=== PATIENT | female | born 1940 | race Hispanic/Latino ===

== ENCOUNTER 2017-05-26 15:33 | Inpatient (IN) | payer MEDICARE ==
[~2017-05-26] VITALS: Ht 154.9 cm; Wt 59.1 kg
[~2017-05-26 15:33] MED LIST: BRIM5DRO OU; BUDE10.2 IH; DILT120C57 PO; ERGO500014 PO; SITA100T12 PO
[2017-05-26 16:05] LABS: BASOPHILS % (AUTO) 0.7 % (0.0-5.0); EOSINOPHILS % (AUTO) 0.6 % (0.0-8.0); HEMATOCRIT 37.2 % (36-48); LYMPHOCYTES % (AUTO) 12.6 % (21.0-51.0); MEAN CORPUSCULAR HEMOGLOBIN 31.7 pg (27.0-33.0); MEAN CORPUSCULAR HGB CONC 34.6 g/dL (32.0-36.0); MEAN CORPUSCULAR VOLUME 91.6 fL (79-99); MONOCYTES % (AUTO) 6.9 % (3.0-13.0); NEUTROPHILS % (AUTO) 79.2 % (40.0-77.0); PLATELET COUNT (AUTO) 390 K/uL (130-400); RED BLOOD CELL COUNT(AUTO) 4.05 MIL/uL (4.00-5.50); RED CELL DISTRIBUTION WIDTH 12.8 % (11.0-15.5)
[2017-05-26 16:14] LABS: POTASSIUM 3.9 mmol/L (3.5-5.1)
[2017-05-26 16:19] LABS: ALBUMIN 2.9 g/dL (3.5-5.0); BILIRUBIN,TOTAL 0.4 mg/dL (0.2-1.0); TOTAL PROTEIN, SERUM 7.5 g/dL (6.0-8.3)
[2017-05-26 16:38] LABS: APPEARANCE,URINE Clear (CLEAR); BILIRUBIN,URINE Negative (NEGATIVE); COLOR,URINE Yellow (YELLOW); GLUCOSE, URINE (UA) 500 mg/dL (NEGATIVE); KETONES,URINE Negative (NEGATIVE); LEUKOCYTE ESTERASE ,URINE Negative (NEGATIVE); NITRATE,URINE Negative (NEGATIVE); OCCULT BLOOD,URINE Negative (NEGATIVE); PROTEIN,URINE Negative (NEGATIVE); UROBILINOGEN,URINE 0.2 mg/dL (0.2-1.0)
[2017-05-26 16:55] LABS: BACTERIA,URINE Rare /HPF (None Seen); RBC,URINE None Seen /HPF (0-1); WBC,URINE None Seen /HPF (0-1)
[2017-05-26] MEDS ORDERED: BENZONATATE 100 MG CAPSULE PO ONE (17:11)
[2017-05-26] MEDS ORDERED: SODIUM CHLORIDE 0.9% 1000ML 1,000 ML IV ONE (17:11)
[2017-05-26] MEDS ORDERED: IPRATROPIUM/ALBUTEROL SULFATE 3 ML SOLUTION IH ONE (17:24)
[2017-05-26] MEDS ORDERED: IOPAMIDOL-370 75 ML VIAL IV ONE (18:27)
[2017-05-26] MEDS ORDERED: METHYLPREDNISOLONE SOD SUCC 40MG/ML 1ML ONE (19:55)
[2017-05-26] MEDS ORDERED: CEFTRIAXONE SODIUM 1 GM ONE (20:01)
[2017-05-26] MEDS ORDERED: AZITHROMYCIN 250 MG TABLET PO ONE (20:02)
[2017-05-26] MEDS ORDERED: OSELTAMIVIR PHOSPHATE 75 MG CAP ONE (20:03)
[2017-05-26] MEDS ORDERED: ALBUTEROL SULFATE 0.083% 2.5 MG/3 ML INH IH ONE (20:04)
[2017-05-26] MEDS ORDERED: INSULIN HUMULIN R 100 UNIT/ML 3ML ONE (20:23)
[2017-05-26] MEDS: OSELTAMIVIR PHOSPHATE 75 MG CAP PO SCH (21:00)
[2017-05-26 21:45] VITALS: BP 161/62
[2017-05-26] MEDS: IPRATROPIUM/ALBUTEROL SULFATE 3 ML SOLUTION IH SCH (22:19)
[2017-05-26] MEDS: SODIUM CHLORIDE 0.9% 1000ML 1,000 ML IV SCH (22:35)
[2017-05-26] MEDS: INSULIN R PO SS1 SQ SCH (22:36)
[2017-05-26] MEDS: ACETAMINOPHEN 325 MG TAB PO PRN (22:37)
[2017-05-27] VITALS (7 sets, daily range): BP systolic 124–144; BP diastolic 59–73
[2017-05-27] MEDS: IPRATROPIUM/ALBUTEROL SULFATE 3 ML SOLUTION IH SCH ×6 (02:23→22:20)
[2017-05-27 03:56] LABS: HEMATOCRIT 35.1 % (36-48); MEAN CORPUSCULAR HGB CONC 34.1 g/dL (32.0-36.0); MEAN CORPUSCULAR VOLUME 93.9 fL (79-99); PLATELET COUNT (AUTO) 323 K/uL (130-400); RED BLOOD CELL COUNT(AUTO) 3.74 MIL/uL (4.00-5.50); RED CELL DISTRIBUTION WIDTH 12.8 % (11.0-15.5); WHITE BLOOD COUNT (AUTO) 10.2 K/uL (4.8-10.8)
[2017-05-27 04:14] LABS: CREATININE 1.2 mg/dL (0.5-1.5); MAGNESIUM 1.3 mg/dL (1.80-2.40); POTASSIUM 3.8 mmol/L (3.5-5.1)
[2017-05-27 04:37] LABS: BAND NEUTROPHILS % (MANUAL) 2 % (0-2); LYMPHOCYTES % (MANUAL) 2 % (22-44); MAN.DIFF COMMENT-IMPRESSION MANUAL DIFFERENTIAL; PLATELET MORPHOLOGY COMMENT ADEQUATE; SEGMENTED NEUTROPHILS % 96 % (40-70)
[2017-05-27] MEDS ORDERED: MAGNESIUM 4GM PREMIX 100ML 100 ML IV ONE (05:15)
[2017-05-27] MEDS: INSULIN R PO SS1 SQ SCH ×2 (05:49→11:30)
[2017-05-27] MEDS: INSULIN HUMULIN R 100 UNIT/ML 3ML SQ SCH ×4 (05:49→21:11)
[2017-05-27] MEDS: INSULIN GLARGINE 100 UNITS/ML 10 ML VIAL SQ SCH ×2 (05:50→21:12)
[2017-05-27] MEDS ORDERED: MAGNESIUM 2GM PREMIX 50ML 100 ML IV ONE (06:04)
[2017-05-27 09:17] LABS: MEAN CORPUSCULAR HEMOGLOBIN 30.9 pg (27.0-33.0); MEAN CORPUSCULAR HGB CONC 33.6 g/dL (32.0-36.0); MEAN CORPUSCULAR VOLUME 92.2 fL (79-99); PLATELET COUNT (AUTO) 346 K/uL (130-400); RED BLOOD CELL COUNT(AUTO) 3.91 MIL/uL (4.00-5.50); RED CELL DISTRIBUTION WIDTH 12.6 % (11.0-15.5); WHITE BLOOD COUNT (AUTO) 12.2 K/uL (4.8-10.8)
[2017-05-27] MEDS: OSELTAMIVIR PHOSPHATE 75 MG CAP PO SCH (09:18)
[2017-05-27 09:32] LABS: BAND NEUTROPHILS % (MANUAL) 1 % (0-2); LYMPHOCYTES % (MANUAL) 4 % (22-44); MAN.DIFF COMMENT-IMPRESSION MANUAL DIFFERENTIAL; MONOCYTES % (MANUAL) 1 % (2-9); PLATELET MORPHOLOGY COMMENT ADEQUATE; SEGMENTED NEUTROPHILS % 94 % (40-70)
[2017-05-27] MEDS ORDERED: COMPOUND PO MISCELLANEOUS 1 EACH MISC MISC PRN (13:45)
[2017-05-27] MEDS ORDERED: TAMO20TA4 PO (14:24)
[2017-05-27] MEDS: SODIUM CHLORIDE 0.9% 1000ML 1,000 ML IV SCH (14:30)
[2017-05-27] MEDS ORDERED: MAGNESIUM 2GM PREMIX 50ML 50 ML IV PRN (15:30)
[2017-05-27] MEDS ORDERED: CEFTRIAXONE SODIUM 1 GM IVP SCH (19:00)
[2017-05-27] MEDS ORDERED: INSULIN GLARGINE 100 UNITS/ML 10 ML VIAL SQ ONE (20:41)
[2017-05-27] MEDS: AZITHROMYCIN 500MG+NS 250ML 250 ML IV SCH (21:08)
[2017-05-27] MEDS: CEFTRIAXONE SODIUM 1 GM IVP SCH (21:08)
[2017-05-27] MEDS: OSELTAMIVIR SUSP 15 MG/ML (6 CAPS/29ML) PO SCH ×2 (21:09)
[2017-05-27] MEDS: ZOLPIDEM TARTRATE 5 MG TAB PO SCH (21:09)
[2017-05-28] MEDS: IPRATROPIUM/ALBUTEROL SULFATE 3 ML SOLUTION IH SCH ×6 (01:56→22:08)
[2017-05-28 03:17] VITALS: BP 145/72
[2017-05-28 04:43] LABS: CREATININE 0.7 mg/dL (0.5-1.5); MAGNESIUM 2.3 mg/dL (1.80-2.40)
[2017-05-28] MEDS ORDERED: INSULIN GLARGINE 100 UNITS/ML 10 ML VIAL SQ ONE ×2 (05:04→20:20)
[2017-05-28] MEDS: INSULIN GLARGINE 100 UNITS/ML 10 ML VIAL SQ SCH ×2 (06:33→22:17)
[2017-05-28] MEDS: INSULIN HUMULIN R 100 UNIT/ML 3ML SQ SCH ×4 (06:33→22:16)
[2017-05-28 06:50] LABS: BASOPHILS % (AUTO) 0.3 % (0.0-5.0); EOSINOPHILS % (AUTO) 0.1 % (0.0-8.0); MEAN CORPUSCULAR HEMOGLOBIN 32.3 pg (27.0-33.0); MEAN CORPUSCULAR HGB CONC 34.3 g/dL (32.0-36.0); MONOCYTES % (AUTO) 5.5 % (3.0-13.0); NEUTROPHILS % (AUTO) 82.1 % (40.0-77.0); PLATELET COUNT (AUTO) 348 K/uL (130-400); RED CELL DISTRIBUTION WIDTH 12.9 % (11.0-15.5)
[2017-05-28 07:00] VITALS: BP 159/67
[2017-05-28] MEDS: LINAGLIPTIN 5 MG TABLET PO SCH (08:23)
[2017-05-28] MEDS: OSELTAMIVIR SUSP 15 MG/ML (6 CAPS/29ML) PO SCH ×4 (08:23→21:36)
[2017-05-28] MEDS: SODIUM CHLORIDE 0.9% 1000ML 1,000 ML IV SCH (08:24)
[2017-05-28] MEDS: ERGOCALCIFEROL (VITAMIN D2) 50,000 UNIT CAPSULE PO SCH ×2 (08:27→14:03)
[2017-05-28] MEDS: TAMOXIFEN CITRATE 10 MG TABLET PO SCH (08:28)
[2017-05-28] MEDS: DILTIAZEM HCL 120 MG CAP.SR.24H PO SCH (08:28)
[2017-05-28] MEDS: BRIMONIDINE TARTRATE 0.2% 5 ML BOTTLE OU SCH (10:51)
[2017-05-28] MEDS: TIMOLOL MALEATE 0.5% 5 ML BOTTLE OU SCH (10:51)
[2017-05-28 11:00] VITALS: BP 125/64
[2017-05-28] MEDS: ACETAMINOPHEN 325 MG TAB PO PRN (15:25)
[2017-05-28 16:00] VITALS: BP 133/85
[2017-05-28] MEDS: ALBUTEROL SULFATE 0.083% 2.5 MG/3 ML INH IH SCH (18:00)
[2017-05-28 19:02] VITALS: BP 141/72
[2017-05-28] MEDS: AZITHROMYCIN 500MG+NS 250ML 250 ML IV SCH (21:35)
[2017-05-28] MEDS: ZOLPIDEM TARTRATE 5 MG TAB PO SCH (21:35)
[2017-05-28] MEDS: CEFTRIAXONE SODIUM 1 GM IVP SCH (21:35)
[2017-05-28] MEDS: BUDESONIDE 0.5 MG/2 ML INH IH SCH (22:22)
[2017-05-28 23:09] VITALS: BP 167/85
[2017-05-29] MEDS: IPRATROPIUM/ALBUTEROL SULFATE 3 ML SOLUTION IH SCH ×6 (01:54→22:33)
[2017-05-29 03:03] VITALS: BP 165/81
[2017-05-29 03:45] LABS: MAGNESIUM 1.5 mg/dL (1.80-2.40)
[2017-05-29 03:55] LABS: HEMATOCRIT 34.5 % (36-48); MEAN CORPUSCULAR HGB CONC 34.9 g/dL (32.0-36.0); MEAN CORPUSCULAR VOLUME 94.6 fL (79-99); NUCLEATED RED BLOOD CELLS 0.1 % (0.0-0.19); PLATELET COUNT (AUTO) 364 K/uL (130-400); RED BLOOD CELL COUNT(AUTO) 3.64 MIL/uL (4.00-5.50); RED CELL DISTRIBUTION WIDTH 12.8 % (11.0-15.5)
[2017-05-29] MEDS ORDERED: OSEL75 PO (05:18)
[2017-05-29] MEDS ORDERED: LEVO500T89 PO (05:18)
[2017-05-29 05:31] LABS: BAND NEUTROPHILS % (MANUAL) 5 % (0-2); LYMPHOCYTES % (MANUAL) 19 % (22-44); MAN.DIFF COMMENT-IMPRESSION MANUAL DIFFERENTIAL; MONOCYTES % (MANUAL) 14 % (2-9); PLATELET MORPHOLOGY COMMENT ADEQUATE; REACTIVE LYMPHOCYTES 5 % (0-0); SEGMENTED NEUTROPHILS % 57 % (40-70)
[2017-05-29] MEDS: ALBUTEROL SULFATE 0.083% 2.5 MG/3 ML INH IH SCH ×4 (06:00→18:00)
[2017-05-29] MEDS: INSULIN HUMULIN R 100 UNIT/ML 3ML SQ SCH ×3 (06:35→20:55)
[2017-05-29] MEDS: INSULIN GLARGINE 100 UNITS/ML 10 ML VIAL SQ SCH ×2 (06:36→20:58)
[2017-05-29] MEDS: BUDESONIDE 0.5 MG/2 ML INH IH SCH ×2 (06:41→18:00)
[2017-05-29 08:20] VITALS: BP 148/80
[2017-05-29] MEDS ORDERED: MAGNESIUM 4GM PREMIX 100ML 100 ML IV SCH (09:00)
[2017-05-29] MEDS: TAMOXIFEN CITRATE 10 MG TABLET PO SCH (09:36)
[2017-05-29] MEDS: DILTIAZEM HCL 120 MG CAP.SR.24H PO SCH (09:36)
[2017-05-29] MEDS: LINAGLIPTIN 5 MG TABLET PO SCH (09:36)
[2017-05-29] MEDS: BRIMONIDINE TARTRATE 0.2% 5 ML BOTTLE OU SCH (09:37)
[2017-05-29] MEDS: OSELTAMIVIR SUSP 15 MG/ML (6 CAPS/29ML) PO SCH ×4 (09:37→20:52)
[2017-05-29] MEDS: TIMOLOL MALEATE 0.5% 5 ML BOTTLE OU SCH (09:37)
[2017-05-29] MEDS: ACETAMINOPHEN 325 MG TAB PO PRN (09:54)
[2017-05-29 11:00] VITALS: BP 162/76
[2017-05-29] MEDS: SODIUM CHLORIDE 0.9% 1000ML 1,000 ML IV SCH (14:55)
[2017-05-29 16:00] VITALS: BP 129/56
[2017-05-29 19:00] VITALS: BP 175/80
[2017-05-29] MEDS: ZOLPIDEM TARTRATE 5 MG TAB PO SCH (20:49)
[2017-05-29] MEDS: DOXYCYCLINE HYCLATE 100 MG TABLET PO SCH (20:52)
[2017-05-29 23:00] VITALS: BP 146/94
[2017-05-30] MEDS: ALBUTEROL SULFATE 0.083% 2.5 MG/3 ML INH IH SCH
[2017-05-30] MEDS: IPRATROPIUM/ALBUTEROL SULFATE 3 ML SOLUTION IH SCH ×3 (01:24→09:47)
[2017-05-30 03:00] VITALS: BP 141/63
[2017-05-30] MEDS: SODIUM CHLORIDE 0.9% 1000ML 1,000 ML IV SCH (03:17)
[2017-05-30] MEDS: ACETAMINOPHEN 325 MG TAB PO PRN (03:24)
[2017-05-30] MEDS: INSULIN HUMULIN R 100 UNIT/ML 3ML SQ SCH (05:44)
[2017-05-30] MEDS: INSULIN GLARGINE 100 UNITS/ML 10 ML VIAL SQ SCH (06:14)
[2017-05-30 07:39] VITALS: BP 141/58
[2017-05-30] MEDS: TAMOXIFEN CITRATE 10 MG TABLET PO SCH (09:09)
[2017-05-30] MEDS: OSELTAMIVIR SUSP 15 MG/ML (6 CAPS/29ML) PO SCH ×2 (09:09)
[2017-05-30] MEDS: DILTIAZEM HCL 120 MG CAP.SR.24H PO SCH (09:09)
[2017-05-30] MEDS: LINAGLIPTIN 5 MG TABLET PO SCH (09:09)
[2017-05-30] MEDS: DOXYCYCLINE HYCLATE 100 MG TABLET PO SCH (09:09)
[2017-05-30 09:10] LABS: BASOPHILS % (AUTO) 0.8 % (0.0-5.0); HEMATOCRIT 36.8 % (36-48); MEAN CORPUSCULAR HEMOGLOBIN 31.5 pg (27.0-33.0); MEAN CORPUSCULAR VOLUME 92.7 fL (79-99); MONOCYTES % (AUTO) 7.2 % (3.0-13.0); NUCLEATED RED BLOOD CELLS 0.1 % (0.0-0.19); PLATELET COUNT (AUTO) 390 K/uL (130-400); RED BLOOD CELL COUNT(AUTO) 3.97 MIL/uL (4.00-5.50); RED CELL DISTRIBUTION WIDTH 12.9 % (11.0-15.5); WHITE BLOOD COUNT (AUTO) 8.4 K/uL (4.8-10.8)
[2017-05-30 11:30] VITALS: BP 146/72
== END 2017-05-30 13:22 | disposition home or self-care (01) | DRG 190 ==
LOC: EDH 15:33 → EDHIP 20:00 → 2DH 20:44
PROVIDERS: ADMIT Family Medicine; ATTEND Family Medicine
DX: J44.0 Chronic obstructive pulmonary disease with (acute) lower respiratory infection (principal); J10.01 Influenza due to other identified influenza virus with the same other identified influenza virus pneumonia; R06.03 Acute respiratory distress; E11.65 Type 2 diabetes mellitus with hyperglycemia; E87.1 Hypo-osmolality and hyponatremia; J44.1 Chronic obstructive pulmonary disease with (acute) exacerbation; E83.42 Hypomagnesemia; E78.5 Hyperlipidemia, unspecified; E87.6 Hypokalemia; I25.10 Atherosclerotic heart disease of native coronary artery without angina pectoris; M81.0 Age-related osteoporosis without current pathological fracture; I10 Essential (primary) hypertension; Z83.3 Family history of diabetes mellitus; Z82.49 Family history of ischemic heart disease and other diseases of the circulatory system; Z87.891 Personal history of nicotine dependence; Z28.21 Immunization not carried out because of patient refusal; Z98.51 Tubal ligation status; Z95.1 Presence of aortocoronary bypass graft; Z85.3 Personal history of malignant neoplasm of breast; Z92.21 Personal history of antineoplastic chemotherapy
CPT/HCPCS: 36415; 71046; 71260; 73562; 80048; 80053; 81001; 82948; 83735; 84484; 85007; 85025; 85027; 87040; 87088; 87186; 87804; 93005; 94640; 94664; A4218; J0456; J0696; J1815; J2920; J3475; J7030; Q9967

== ENCOUNTER 2017-07-14 12:54 | Inpatient (IN) | payer MEDICARE ==
[~2017-07-14 12:54] MED LIST changes: +LEVO500T89 PO; +OSEL75 PO; +TAMO20TA4 PO
[2017-07-14 14:01] LABS: BASOPHILS % (AUTO) 0.6 % (0.0-5.0); EOSINOPHILS % (AUTO) 0.1 % (0.0-8.0); HEMATOCRIT 36.4 % (36-48); LYMPHOCYTES % (AUTO) 11.5 % (21.0-51.0); MEAN CORPUSCULAR HEMOGLOBIN 32.2 pg (27.0-33.0); MEAN CORPUSCULAR HGB CONC 35.2 g/dL (32.0-36.0); MEAN CORPUSCULAR VOLUME 91.5 fL (79-99); MONOCYTES % (AUTO) 7.1 % (3.0-13.0); NEUTROPHILS % (AUTO) 80.7 % (40.0-77.0); PLATELET COUNT (AUTO) 279 K/uL (130-400); RED BLOOD CELL COUNT(AUTO) 3.98 MIL/uL (4.00-5.50); RED CELL DISTRIBUTION WIDTH 13.7 % (11.0-15.5); WHITE BLOOD COUNT (AUTO) 11.2 K/uL (4.8-10.8)
[2017-07-14 14:36] LABS: CARBON DIOXIDE 25 mmol/L (21-32); CHLORIDE 97 mmol/L (101-111); CREATININE 0.8 mg/dL (0.5-1.5); GLOMERULAR FILTR. RATE CALC 74 mL/min (>60); GLUCOSE,RANDOM 302 mg/dL (70-105); POTASSIUM 3.8 mmol/L (3.5-5.1); SODIUM SERUM 132 mmol/L (136-145); UREA NITROGEN, BLOOD 9 mg/dL (7-18)
[2017-07-14 14:37] LABS: INR 0.9 (0.85-1.15); PARTIAL THROMBOPLASTIN TIME 31.3 SEC (26.3-35.5); PROTHROMBIN TIME 9.5 SEC (9.6-11.6)
[2017-07-14 14:49] LABS: ALANINE AMINOTRANSFERASE 40 U/L (12-78); ALBUMIN 2.9 g/dL (3.5-5.0); ASPARTATE AMINOTRANSFERASE 53 U/L (10-37); BILIRUBIN,TOTAL 0.7 mg/dL (0.2-1.0); CREATINE KINASE MB < 0.5 ng/mL (0.5-3.6); CREATINE KINASE, TOTAL 47 U/L (21-232); TOTAL PROTEIN, SERUM 7.5 g/dL (6.0-8.3)
[2017-07-14] MEDS ORDERED: IPRATROPIUM/ALBUTEROL SULFATE 3 ML SOLUTION IH ONE (15:16)
[2017-07-14] MEDS ORDERED: ISOVUE-370 50ML VIAL IV ONE (16:57)
[2017-07-14] MEDS ORDERED: CEFTRIAXONE SODIUM 1 GM ONE (18:32)
[2017-07-14] MEDS ORDERED: ACETAMINOPHEN 325 MG TAB ONE (18:37)
[2017-07-14] MEDS ORDERED: SODIUM CHLORIDE 0.9% 1000ML 1,000 ML IV ONE (20:46)
[2017-07-14] MEDS ORDERED: AZITHROMYCIN 500MG+NS 250ML 250 ML IV ONE (20:47)
[2017-07-14] MEDS ORDERED: INSULIN HUMULIN R 100 UNIT/ML 3ML ONE ×2 (20:51→20:59)
[2017-07-14 22:35] VITALS: BP 143/93
[2017-07-14] MEDS: IPRATROPIUM/ALBUTEROL SULFATE 3 ML SOLUTION IH SCH (23:10)
[2017-07-14] MEDS: SODIUM CHLORIDE 0.9% 1000ML 1,000 ML IV SCH (23:15)
[2017-07-14] MEDS ORDERED: DEXTROSE 50%-WATER 50 ML DISP.SYRIN IV PRN (23:15)
[2017-07-14] MEDS ORDERED: GLUCAGON 1MG KIT 1 MG ML IM PRN (23:15)
[2017-07-14 23:32] LABS: CREATINE KINASE MB < 0.5 ng/mL (0.5-3.6); CREATINE KINASE, TOTAL 44 U/L (21-232); MYOGLOBIN 22 ng/mL (10-92); TROPONIN I < 0.04 ng/mL (0.00-0.06)
[2017-07-15] MEDS ORDERED: ACETAMINOPHEN 325 MG TAB ONE (02:11)
[2017-07-15] MEDS ORDERED: ACETAMINOPHEN 325 MG TAB PO PRN (02:15)
[2017-07-15 04:00] VITALS: BP 162/77
[2017-07-15 06:30] LABS: MEAN CORPUSCULAR HEMOGLOBIN 32.4 pg (27.0-33.0); MEAN CORPUSCULAR HGB CONC 35.3 g/dL (32.0-36.0); MEAN CORPUSCULAR VOLUME 91.8 fL (79-99); PLATELET COUNT (AUTO) 284 K/uL (130-400); RED BLOOD CELL COUNT(AUTO) 3.92 MIL/uL (4.00-5.50); RED CELL DISTRIBUTION WIDTH 13.5 % (11.0-15.5); WHITE BLOOD COUNT (AUTO) 8.5 K/uL (4.8-10.8)
[2017-07-15] MEDS: INSULIN R PO SS1 SQ SCH ×4 (06:35→20:41)
[2017-07-15 06:53] LABS: ALANINE AMINOTRANSFERASE 39 U/L (12-78); ALBUMIN 2.8 g/dL (3.5-5.0); ASPARTATE AMINOTRANSFERASE 45 U/L (10-37); BILIRUBIN,TOTAL 0.6 mg/dL (0.2-1.0); CARBON DIOXIDE 28 mmol/L (21-32); CHLORIDE 100 mmol/L (101-111); CREATINE KINASE MB < 0.5 ng/mL (0.5-3.6); CREATINE KINASE, TOTAL 61 U/L (21-232); CREATININE 0.8 mg/dL (0.5-1.5); GLOMERULAR FILTR. RATE CALC 74 mL/min (>60); GLUCOSE,RANDOM 216 mg/dL (70-105); MYOGLOBIN 27 ng/mL (10-92); POTASSIUM 3.8 mmol/L (3.5-5.1); SODIUM SERUM 136 mmol/L (136-145); TOTAL PROTEIN, SERUM 7.3 g/dL (6.0-8.3); TROPONIN I < 0.04 ng/mL (0.00-0.06); UREA NITROGEN, BLOOD 8 mg/dL (7-18)
[2017-07-15] MEDS: IPRATROPIUM/ALBUTEROL SULFATE 3 ML SOLUTION IH SCH ×4 (07:02→23:50)
[2017-07-15 07:30] VITALS: BP 130/61
[2017-07-15] MEDS: AZITHROMYCIN 500MG+NS 250ML 250 ML IV SCH (08:29)
[2017-07-15] MEDS: CEFTRIAXONE SODIUM 1 GM IVP SCH (08:29)
[2017-07-15] MEDS: HYDROCODONE/CHLORPHEN 5 ML BOTTLE PO SCH ×2 (08:35→20:30)
[2017-07-15 11:00] VITALS: BP 124/61
[2017-07-15] MEDS: SODIUM CHLORIDE 0.9% 1000ML 1,000 ML IV SCH (12:35)
[2017-07-15 16:00] VITALS: BP 125/46
[2017-07-15 19:00] VITALS: BP 144/82
[2017-07-15] MEDS ORDERED: INSLAN SQ (19:56)
[2017-07-15] MEDS ORDERED: SYMBICORT 160-4.5 MCG INHALER IH SCH (20:15)
[2017-07-15] MEDS ORDERED: INSULIN GLARGINE 100 UNITS/ML 10 ML VIAL SQ PRN (20:15)
[2017-07-15] MEDS: ERGOCALCIFEROL (VITAMIN D2) 50,000 UNIT CAPSULE PO SCH ×2 (20:30→20:35)
[2017-07-15] MEDS ORDERED: MAGNESIUM 4GM PREMIX 100ML 100 ML IV ONE (21:00)
[2017-07-15 23:30] VITALS: BP 145/63
[2017-07-16] MEDS: SODIUM CHLORIDE 0.9% 1000ML 1,000 ML IV SCH (02:27)
[2017-07-16 03:18] VITALS: BP 141/68
[2017-07-16 05:01] LABS: HEMATOCRIT 33.6 % (36-48); MEAN CORPUSCULAR HEMOGLOBIN 32.4 pg (27.0-33.0); MEAN CORPUSCULAR HGB CONC 35.4 g/dL (32.0-36.0); MEAN CORPUSCULAR VOLUME 91.5 fL (79-99); PLATELET COUNT (AUTO) 293 K/uL (130-400); RED BLOOD CELL COUNT(AUTO) 3.67 MIL/uL (4.00-5.50); RED CELL DISTRIBUTION WIDTH 13.2 % (11.0-15.5); WHITE BLOOD COUNT (AUTO) 7.9 K/uL (4.8-10.8)
[2017-07-16 05:26] LABS: ALBUMIN 2.4 g/dL (3.5-5.0); BILIRUBIN,TOTAL 0.3 mg/dL (0.2-1.0); CREATININE 0.8 mg/dL (0.5-1.5); MAGNESIUM 2.5 mg/dL (1.80-2.40); POTASSIUM 3.4 mmol/L (3.5-5.1); TOTAL PROTEIN, SERUM 6.6 g/dL (6.0-8.3)
[2017-07-16] MEDS: INSULIN R PO SS1 SQ SCH ×2 (05:42→12:14)
[2017-07-16] MEDS: IPRATROPIUM/ALBUTEROL SULFATE 3 ML SOLUTION IH SCH (07:21)
[2017-07-16] MEDS: AZITHROMYCIN 500MG+NS 250ML 250 ML IV SCH (07:43)
[2017-07-16] MEDS: CEFTRIAXONE SODIUM 1 GM IVP SCH (07:43)
[2017-07-16] MEDS: HYDROCODONE/CHLORPHEN 5 ML BOTTLE PO SCH (07:56)
[2017-07-16 08:14] VITALS: BP 146/64
[2017-07-16] MEDS ORDERED: DILTIAZEM HCL 120 MG CAP.SR.24H PO SCH (09:00)
[2017-07-16] MEDS ORDERED: TAMOXIFEN CITRATE 10 MG TABLET PO SCH (09:00)
[2017-07-16] MEDS ORDERED: Brimonidine Tartrate/Timolol (Combigan Eye Drops) 1 DROP OU SCH (09:00)
[2017-07-18] MEDS ORDERED: ERGOCALCIFEROL (VITAMIN D2) 50,000 UNIT CAPSULE PO SCH (09:00)
== END 2017-07-16 12:15 | disposition home or self-care (01) | DRG 191 ==
LOC: EDH 12:54 → EDHIP 16:30 → 3CH 21:11
PROVIDERS: ADMIT Family Medicine; ATTEND Family Medicine
DX: J44.0 Chronic obstructive pulmonary disease with (acute) lower respiratory infection (principal); J90 Pleural effusion, not elsewhere classified; E11.65 Type 2 diabetes mellitus with hyperglycemia; E83.42 Hypomagnesemia; J44.1 Chronic obstructive pulmonary disease with (acute) exacerbation; J20.9 Acute bronchitis, unspecified; E87.6 Hypokalemia; I10 Essential (primary) hypertension; Z88.8 Allergy status to other drugs, medicaments and biological substances; Z91.14 Patient's other noncompliance with medication regimen
CPT/HCPCS: 36415; 71046; 71260; 80053; 82550; 82553; 82948; 83735; 83874; 84484; 85025; 85027; 85610; 85730; 94640; 94664; A4218; J0456; J0696; J1815; J3475; J7030; Q9967

== ENCOUNTER → 2019-06-05 | Outpatient (CLI) | payer MEDICARE ==
[~2019-06-05] MED LIST changes: -DILT120C57 PO; +DILT120C95 PO; +INSLAN SQ; -LEVO500T89 PO; -OSEL75 PO; -SITA100T12 PO
== END | disposition home or self-care (01) ==
LOC: RAH 14:55
PROVIDERS: ATTEND Urology
DX: N39.46 Mixed incontinence (principal)
CPT/HCPCS: 76770

== ENCOUNTER → 2019-09-21 | Outpatient (CLI) | payer MEDICARE ==
[2019-09-21 09:06] LABS: BASOPHILS % (AUTO) 0.6 % (0.0-5.0); HEMATOCRIT 39.1 % (36-48); MEAN CORPUSCULAR HEMOGLOBIN 31.9 pg (27.0-33.0); MEAN CORPUSCULAR HGB CONC 33.2 g/dL (32.0-36.0); MEAN CORPUSCULAR VOLUME 96.1 fL (79-99); MONOCYTES % (AUTO) 9.7 % (3.0-13.0); NEUTROPHILS % (AUTO) 54.2 % (40.0-77.0); PLATELET COUNT (AUTO) 238 K/uL (130-400); RED BLOOD CELL COUNT(AUTO) 4.07 MIL/uL (4.00-5.50); RED CELL DISTRIBUTION WIDTH 12.7 % (11.0-15.5); WHITE BLOOD COUNT (AUTO) 6.4 K/uL (4.8-10.8)
[2019-09-21 09:15] LABS: CREATININE 0.9 mg/dL (0.5-1.5); POTASSIUM 4.6 mmol/L (3.5-5.1)
== END | disposition home or self-care (01) ==
LOC: LAB 08:34
PROVIDERS: ATTEND Urology
DX: N28.89 Other specified disorders of kidney and ureter (principal)
CPT/HCPCS: 36415; 80048; 85025

== ENCOUNTER → 2019-10-07 | Outpatient (CLI) | payer MEDICARE ==
[~2019-10-07] MED LIST changes: +IOHEXOL 350 MG/ML 100ML INFUS..BTL IV ONE
== END | disposition home or self-care (01) ==
LOC: RAH 09:43
PROVIDERS: ATTEND Urology
DX: N28.89 Other specified disorders of kidney and ureter (principal); K57.30 Diverticulosis of large intestine without perforation or abscess without bleeding
CPT/HCPCS: 74178; Q9967

== ENCOUNTER → 2022-01-26 | Outpatient (CLI) | payer MEDICARE ==
[~2022-01-26] MED LIST changes: -IOHEXOL 350 MG/ML 100ML INFUS..BTL IV ONE
== END | disposition home or self-care (01) ==
LOC: RAH 13:57
PROVIDERS: ATTEND Family Medicine
DX: I08.3 Combined rheumatic disorders of mitral, aortic and tricuspid valves (principal); I11.9 Hypertensive heart disease without heart failure; E11.9 Type 2 diabetes mellitus without complications; E78.5 Hyperlipidemia, unspecified
CPT/HCPCS: 93306